=== PATIENT | female | born 1985 | race Caucasian/White ===

== ENCOUNTER 2018-04-25 09:02 | Observation (INO) ==
[2018-04-25] MEDS ORDERED: Albuterol 2.5 MG/3 ML NEBULIZER IH ONE (09:41)
[2018-04-25] MEDS ORDERED: Clindamycin 900 MG/50 ML 900 MG/50 ML IV.SOLN IVPB ONE (09:41)
[2018-04-25] MEDS ORDERED: Albuterol 2.5 MG/3 ML NEBULIZER ONE (09:44)
[2018-04-25] MEDS ORDERED: Ringers Solution, Lactated 1,000 ML IVC SCH (09:45)
[2018-04-25] MEDS ORDERED: Acetaminophen IV 1,000 MG/100 ML INFUS..BTL IVPB ONE (09:56)
[2018-04-25] MEDS ORDERED: *HR* Midazolam HCl 2 MG/2 ML VIAL ONE (09:57)
[2018-04-25] MEDS ORDERED: Scopolamine Patch 1.5 MG PATCH.TD72 TD ONE (09:57)
[2018-04-25] MEDS ORDERED: *HR* Propofol 200 MG/20 ML VIAL IVP ONE (09:57)
[2018-04-25] MEDS ORDERED: *HR* FentaNYL (PF) 100 MCG/2 ML VIAL ONE (09:57)
[2018-04-25] MEDS ORDERED: Ondansetron 4 MG/2 ML VIAL ONE (09:58)
[2018-04-25] MEDS ORDERED: *HR* Rocuronium Bromide 50 MG/5 ML VIAL ONE ×2 (09:58→12:37)
[2018-04-25] MEDS ORDERED: Lidocaine -MPF 4% 5 ML AMPUL ONE (09:58)
[2018-04-25] MEDS ORDERED: Lidocaine -MPF 2% 2 ML VIAL ONE (09:58)
[2018-04-25] MEDS ORDERED: Dexamethasone 4 MG/ML VIAL ONE (09:58)
[2018-04-25] MEDS ORDERED: *HR* Succinylcholine 200 MG/10 ML VIAL IVP ONE (09:58)
--- NOTE | 2018-04-25 09:59 | Anesthesia Evaluation PreOp ---
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: Denies Any Significant HX Other Medical History: Denies Any Significant HX Anesthesia History: No Prior Anesthetic Complications, Past Anesthesia Alcohol Use: none Drug use: none Medications and Allergies Ondansetron ODT [Zofran ODT] 4 mg SL Q8HR PRN #10 tab.rapdis 01/24/16 [Rx] Ondansetron ODT [Zofran ODT] 4 mg SL Q6HR #7 tab.rapdis 01/25/16 [Rx] Docusate [Colace] 100 mg PO BID #30 capsule 01/27/16 [Rx] Ibuprofen [Motrin] 800 mg PO Q8HR #50 tablet 01/27/16 [Rx] OxyCODONE/APAP 5/325 [Percocet 5/325 MG] 1 each PO Q4HR PRN #30 tablet 01/27/16 [Rx] Famotidine [Pepcid] 20 mg PO BID PRN #10 tablet 04/12/16 [Rx] predniSONE [PredniSONE] 40 mg PO DAILY #3 tablet 04/12/16 [Rx] 3 Allergy/AdvReac Type Severity Reaction Status Date / Time aspirin Allergy Hives Verified 04/18/18 10:06 Sulfa (Sulfonamide Allergy Rash Verified 04/18/18 10:06 Antibiotics) - Meds/Allergy Pre-op Review Medications Reviewed: Yes Allergies Reviewed: Yes Beta Blockers on Current Med List: No Anesthesia Exam - HEENT Pupil (Motor): Pupils equal Mallampati: II Teeth: Normal Oral Opening: Greater than 3 - Cardiac Rhythm: Regular Murmur: None - Pulmonary Breath Sounds: bilateral Clear Respiratory Effort: Symmetrical Anesthesia Assess/Plan ASA Score: 2 Modified Samantha Scale for Level of Consciousness: Cooperative, oriented, and tranquil Anesthetic Plan: General Monitoring Plan: Standard Monitors Recovery Plan: PACU (Discussed GA,risks. Agreed to proceed.)
--- NOTE | 2018-04-25 10:12 | History & Physical Report ---
Date of Encounter: 04/25/18 Time of Encounter: 10:12 24 Hour HP Update - Instructions Instructions: If the History and Physical is less than 30 days old and was completed prior to A.M. admission and or procedure and has NOT been updated on calendar day of procedure please complete this update prior to performing procedure. - Update Patient reports changes in Medical Condition: No Changes in examination, assessment, or condition: No Changes in Medication: No Preop tests/diagnostics Reviewed: Yes Surgery Remains Indicated: Yes Consent for Planned Operative Procedure(s) Verified: Yes - Pre-Operative Checklist Preoperative Checklist Indicated: Yes Prophylactic Antibiotic Ordered: Yes Home Medications Include Beta Shemar: No Is VTE Prophylaxis Indicated?: Yes
--- NOTE | 2018-04-25 10:17 | Operative Note ---
Date of procedure: 04/25/18 Pre-op diagnosis: moderate cervical dysplasia (AMI-2), menorrhagia, dysmenorrhea Post-op diagnosis: same Procedure: Laparoscopic-assisted vaginal hysterectomy, bilateral salpingectomy, cystoscopy Anesthesia: MARCIANO Surgeon: Emre Cote Was there an animal assistant present: Yes Painting Contractor: Juani Henson Painting Contractor Other: Cheryle Goldman Estimated blood loss (cc): 100 Specimen: Uterus cervix bilateral tubes Condition: stable Disposition: PACU Procedure in Detail: Indications: 32 year old female A1 with history of abnormal pap and colposcopic biopsy showing moderate cervical dysplasia. Pt. offered LEEP but requested hysterectomy for AMI-2 and history of menorrhagia and dysmenorrhea. Pt. reports history of menses lasting 7-10 days, requiring pads and tampons every hour, occasionally soaking through clothing. Procedure: Patient was taken to the operating room, placed in supine position, and a general anesthetic was administered. She was then placed in modified dorsal lithotomy position and the skin was prepped and draped in usual sterile fashion. A timeout procedure was performed. A weighted speculum was placed in vagina and the anterior lip of cervix was grasped with a single-tooth tenaculum. A uterine manipulator was inserted. The skin incision sites were infiltrated with 0.25% Marcaine with epinephrine. A transverse infraumbilical incision was then performed. A bladeless trocar was inserted under direct visualization. The abdominal cavity was insufflated with carbon dioxide gas. 2 lateral trochars were then inserted under direct visualization. Uterus tubes and ovaries along with ureters were clearly visualized. The right mesosalpinx was transected with the Harmonic scalpel this was then carried through the round ligament. A bladder flap was then created. The procedure was then repeated in similar fashion on the left side. Next the uterine vessels were transected with the Harmonic scalpel. The pedicles were then taken down bilaterally to the level of the lower uterine segment. There was some bleeding on the right side that was eventually controlled with bipolar cautery. The gas was allowed to escape and the laparoscope was removed and the vaginal portion of surgery was then performed. The paracervical tissues were infiltrated with dilute Pitressin solution. A circumferential cervical incision was then performed and the mucosa was bluntly dissected away. A posterior and then an anterior colpotomy was performed. The uterosacral and cardinal ligaments bilaterally were clamped cut and ligated with 0 Vicryl suture. The entire specimen was then removed. Good hemostasis was noted from the pedicle sites. The vaginal cuff was closed with 0 Vicryl suture in a running locking fashion starting at the lateral margins and meeting in the midline. Because of the location of the bleeder near the lower uterine segment I decided to perform a cystoscopy to verify ureteral integrity. A Villela catheter was removed and cystoscope was used with sterile water used as a distention medium. Good visualization was obtained. Urine was noted to flow from both ureteral jets. The cystoscope was then removed and a new Villela catheter was inserted. The laparoscope was then reinserted and good hemostasis was present. The scope was removed and gas was allowed to escape and all trochars were removed. The skin incisions were closed with 4-0 Vicryl suture in interrupted subcuticular fashion. Patient followed procedure well, all sponge needle and instrument counts reported as correct. Estimated blood loss was 100 mL. The urine in the Villela catheter was clear and yellow. She was then taken recovery room in stable condition.
[2018-04-25] MEDS ORDERED: *HR* HYDROmorphone 2 MG/ML SYRINGE ONE (10:50)
[2018-04-25] MEDS ORDERED: Bupivacaine/EPI 1:200k 0.25%PF 10 ML VIAL INFILT ONE (11:00)
[2018-04-25] MEDS ORDERED: *HR* Vasopressin 20 UNIT/ML VIAL ONE (11:01)
[2018-04-25] MEDS ORDERED: Ondansetron 4 MG/2 ML VIAL IVP ONE (12:04)
[2018-04-25] MEDS ORDERED: *HR* Promethazine 25 MG/ML VIAL IVP PRN (12:04)
[2018-04-25] MEDS ORDERED: *HR* Morphine 2 MG/ML SYRINGE IVP PRN (12:04)
[2018-04-25] MEDS ORDERED: *HR* OxyCODONE Immed Rel 5 MG TABLET PO PRN (12:04)
[2018-04-25] MEDS ORDERED: Neostigmine Methylsulfate 3 MG/3 ML SYRINGE ONE (13:46)
--- NOTE | 2018-04-25 14:13 | Anesthesia Evaluation Post Op ---
Date of Encounter: 04/25/18 Time of Encounter: 14:10 - Vital Signs Vital Signs: Vital Signs/O2 Sat/Glucose, Most Current Temp Pulse Resp BP Pulse Ox 04/25/18 14:01 63 12 103/59 99 04/25/18 13:51 56 12 103/59 99 04/25/18 13:41 97.3 F L 60 14 94/49 96 - Lungs Lungs: Clear Ascult./Percussion - Airway Airway: Non-obstructed - Cardiovascular Regular Rate - Mental Status Mental Status: Alert & Oriented, Answers Appropriately - Pain Pain Scale: 0 - Nausea Vomiting Nausea Vomiting: Not Present - Hydration Hydration: Ice chips - Discharge PostOp Status: Transfer Patient to floor (no anesthesia complications VSS transfer to floor)
[2018-04-25] MEDS ORDERED: Naloxone 0.4 MG/ML INJ IVP PRN (14:59)
[2018-04-25] MEDS: *HR* HYDROcodone/Acet 5/325 mg TABLET PO PRN (15:35)
[2018-04-25] MEDS: *HR* Morphine 2 MG/ML SYRINGE IVP PRN ×2 (20:12→21:50)
[2018-04-26] MEDS: *HR* Morphine 2 MG/ML SYRINGE IVP PRN ×3 (00:24→09:46)
[2018-04-26] MEDS: *HR* HYDROcodone/Acet 5/325 mg TABLET PO PRN ×3 (02:37→11:40)
[2018-04-26 04:37] LABS: Basophils % 0.1 %; Eosinophils % 0.3 %; Hematocrit 34.5 % (35.3-44.9); Hemoglobin 11.6 g/dL (11.5-15.4); Immature Granulocytes % 0.3 % (0-4); Lymphocytes # 1.2 K/mcL (0.6-4.6); Lymphocytes % 8.5 %; Mean Corpuscular HGB Conc 33.6 g/dL (31.6-35.5); Mean Corpuscular Hemoglobin 31.1 pg (28.0-33.3); Mean Corpuscular Volume 92.5 fL (83.0-100.0); Monocytes % 6.6 %; Neutrophils # 12.1 K/mcL (1.6-8.9); Platelet Count 241 K/mcL (140-400); Red Blood Count 3.73 M/mcL (3.82-4.97); Red Cell Distribution Width 12.6 % (11.5-14.5); Segmented Neutrophils % 84.2 %
--- NOTE | 2018-04-26 07:20 | Discharge Summary ---
Date of Encounter: 04/27/18 Time of Encounter: 12:28 - Discharge Diagnosis (1) Cervical dysplasia Priority: Primary Status: Resolved (2) Menorrhagia Priority: Secondary Status: Resolved Qualifiers: Menorrahagia type: with regular cycle Qualified Code(s): N92.0 - Excessive and frequent menstruation with regular cycle (3) Dysmenorrhea Priority: Secondary Status: Resolved - Discharge Medications Prescriptions: Ibuprofen [Motrin] 200 mg PO Q4HR PRN #30 tablet PRN Reason: Fever/Pain OxyCODONE Immed Rel [Roxicodone 5 MG] 5 mg PO Q4HR PRN 7 Days #30 tablet PRN Reason: Pain Home Medications: Adult Multivitamin Gummies 2 DAILY 04/25/18 [History] Escitalopram [Lexapro] 20 mg ORAL RINSE DAILY 04/25/18 [History] Docusate [Colace] 100 mg PO BID #60 capsule 04/26/18 [Rx] Ibuprofen [Motrin] 200 mg PO Q4HR PRN #30 tablet 04/27/18 [Rx] OxyCODONE Immed Rel [Roxicodone 5 MG] 5 mg PO Q4HR PRN 7 Days #30 tablet [Rx] Allergies/Adverse Reactions: 3 Allergy/AdvReac Type Severity Reaction Status Date / Time aspirin Allergy Hives Verified 04/18/18 10:06 Sulfa (Sulfonamide Allergy Rash Verified 04/18/18 10:06 Antibiotics) Data Procedures and tests throughout hospitalization: Laboratory Tests 04/26/18 04:11 WBC 14.4 H RBC 3.73 L Hgb 11.6 Hct 34.5 L MCV 92.5 MCH 31.1 MCHC 33.6 RDW 12.6 Plt Count 241 MPV 10.0 Immature Gran % 0.3 Seg Neutrophils % 84.2 Lymphocytes % 8.5 Monocytes % 6.6 Eosinophils % 0.3 Basophils % 0.1 Neutrophils # 12.1 H Lymphocytes # 1.2 Monocytes # 1.0 Eosinophils # 0.0 Basophils # 0.0 Labs on day of discharge: Labs from last 24 hours 04/26/18 04:11 WBC 14.4 H RBC 3.73 L Hgb 11.6 Hct 34.5 L MCV 92.5 MCH 31.1 MCHC 33.6 RDW 12.6 Plt Count 241 MPV 10.0 Immature Gran % 0.3 Seg Neutrophils % 84.2 Lymphocytes % 8.5 Monocytes % 6.6 Eosinophils % 0.3 Basophils % 0.1 Neutrophils # 12.1 H Lymphocytes # 1.2 Monocytes # 1.0 Eosinophils # 0.0 Basophils # 0.0 Primary care physician: Lissy Nobles, CORE COMPOSER MACHINE TENDER Discharging clinician: Emre Cote Anticipated date of discharge: 04/26/18 - Patient Status Disposition: Home, Self-Care Condition: Good Functional capacity at discharge: independent ambulation Overall status at discharge: patient is progressing back to baseline - Discharge Instructions Follow Up With: Emre Cote DO [Partnered Physician] - - Diet and Activity Activity: increase activity as tolerated Diet: advance to your usual diet Hospital Course BIOLOGICAL CHEMIST Procedures: L[facility] Time spent discussing smoking cessation with patient: 3 to 10 minutes Time Attestation: Total time spent providing and/or coordinating discharge services: Time Spent: Less than 30 minutes Exam - Constitutional Vitals: Temp Pulse Resp BP Pulse Ox 98.0 F 72 14 109/52 98 04/26/18 04:30 04/26/18 04:30 04/26/18 04:30 04/26/18 04:30 04/26/18 04:30 General appearance IM: mild distress, A&O X 3 - Respiratory Respiratory exam: Present: CTAB - Cardiovascular Cardiovascular exam IM: Present: RRR - GI/Abdominal GI/Abdominal exam IM: normal bowel sounds Incision: normal, dry, intact - Extremities Exam Extremities exam IM: Present: normal inspection. Absent: calf tenderness - VTE Documentation of Mechanical Device: Intermittent pneumatic compression device
[2018-04-26] MEDS ORDERED: Acetaminophen IV 1,000 MG/100 ML INFUS..BTL IVPB ONE (14:20)
--- NOTE | 2018-04-26 14:52 | OB/GYN Progress Note ---
Date of Encounter: 04/26/18 Time of Encounter: 14:49 - Assessment and Plan (1) Cervical dysplasia Current Visit: Yes Status: Resolved (2) Menorrhagia Current Visit: Yes Status: Resolved Because of continued pain, will obtain UA, C&S. Begin Ofrimev, change from Vicodin to Oxycodone. Will give Dulcolax tabs. Postpone discharge until tomorrow. Qualifiers: Menorrahagia type: with regular cycle Qualified Code(s): N92.0 - Excessive and frequent menstruation with regular cycle (3) Dysmenorrhea Current Visit: Yes Status: Resolved Subjective - Subjective Principal diagnosis: Cervical dysplasia Patient reports: other (Pt. seen twice today. Has c/o abdominal pain, now mainly RLQ, RUQ, and right flank. Voiding well, Tolerating diet.) Objective - Vital Signs Latest vital signs: Vital Signs Temp Pulse Resp BP Pulse Ox 04/26/18 11:54 98.2 F 60 16 95/53 98 04/26/18 08:23 97.9 F 66 16 92/53 98 04/26/18 04:30 98.0 F 72 14 109/52 98 04/26/18 00:15 98.0 F 72 14 110/56 98 04/25/18 19:35 97.5 F L 68 14 116/70 99 04/25/18 17:30 97.5 F L 63 14 103/56 04/25/18 16:25 97.2 F L 70 14 104/58 97 04/25/18 15:33 97.5 F L 61 12 102/97 04/25/18 15:01 98.1 F 60 14 103/55 Intake and Output 04/25/18 04/26/18 04/26/18 23:59 07:59 15:59 Intake Total 500 / 500 200 / 200 Output Total 1999 600 / 600 Balance -1500 / -1500 -400 / -400 Intake: Oral 500 / 500 200 / 200 Output: Urine 1999 600 / 600 Other: Meal Lunch Percent of Meal Consumed 75% Stool Characteristics Normal for Patient Weight 98.611 kg Patient Weight 04/26/18 23:59 Weight 98.611 kg - I&O's I&O's: Intake & Output 04/23/18 04/24/18 04/25/18 04/26/18 23:59 23:59 23:59 23:59 Intake Total 700 / 700 Output Total 100 / 100 2600 / 2600 Balance -100 / -100 -1900 / -1900 Weight 97.1 kg 98.611 kg - Exam Lungs: bilateral: normal Extremities: Present: normal. Absent: tenderness, edema Abdomen: Present: normal appearance, soft, other (Good bowel sounds, no guarding /rebound tenderness) Incision OB: Present: normal, dry, intact - Labs Labs: Abnormal lab results WBC 14.4 K/mcL (4.3-11.1) H 04/26/18 04:11 RBC 3.73 M/mcL (3.82-4.97) L 04/26/18 04:11 Hct 34.5 % (35.3-44.9) L 04/26/18 04:11 Neutrophils # 12.1 K/mcL (1.6-8.9) H 04/26/18 04:11 Consult Discharge Plan - Plan Referrals: Emre Cote DO [Partnered Physician] - Prescriptions: HYDROcodone/Acet 5/325 mg [Marcus 5-325 mg] 1 tab PO Q4HR PRN 7 Days #30 tablet PRN Reason: Moderate Pain (4-6) Docusate [Colace] 100 mg PO BID #60 capsule
[2018-04-26] MEDS: *HR* OxyCODONE Immed Rel 5 MG TABLET PO PRN ×2 (15:12→20:12)
[2018-04-26 18:36] LABS: Bilirubin,Urine Negative (Negative); Blood,Urine Large (Negative); Clarity,Urine Clear (Clear); Color,Urine Yellow (Yellow); Glucose,Urine (UA) Normal (Normal); Ketones,Urine Negative (Negative); Leukocyte Esterase,Urine Trace (Negative); Nitrite,Urine Negative (Negative); Protein,Urine Negative (Neg-Trace); Specific Gravity,Urine 1.019 (1.010-1.025); Urobilinogen,Urine Normal (Normal)
[2018-04-26 18:38] LABS: Bacteria,Urine None Seen per hpf (None-Few); Hyaline Casts,Urine None Seen per lpf (None-Few); RBC,Urine 50-100 per hpf (0-3); Squamous Epithelial Cell,Urine Many per lpf (None-Few)
[2018-04-27] MEDS: *HR* OxyCODONE Immed Rel 5 MG TABLET PO PRN ×4 (00:36→13:02)
--- NOTE | 2018-04-27 07:21 | OB/GYN Progress Note ---
Date of Encounter: 04/27/18 Time of Encounter: 07:19 - Assessment and Plan (1) Cervical dysplasia Current Visit: Yes Status: Resolved (2) Menorrhagia Current Visit: Yes Status: Resolved Because of continued pain, will obtain UA, C&S. Begin Ofrimev, change from Vicodin to Oxycodone. Will give Dulcolax tabs. Postpone discharge until tomorrow. Qualifiers: Menorrahagia type: with regular cycle Qualified Code(s): N92.0 - Excessive and frequent menstruation with regular cycle (3) Dysmenorrhea Current Visit: Yes Status: Resolved (4) Post-op pain Current Visit: Yes Status: Acute Will obtain CT of pelvis Subjective - Subjective Interval history: Pt. still c/o pain lower pelvis, to right flank. Reports tolerating diet, voiding well. Some nausea after extended standing/ambulation. Objective - Vital Signs Latest vital signs: Vital Signs Temp Pulse Resp BP Pulse Ox 04/27/18 04:25 98.1 F 69 14 108/54 97 04/27/18 00:25 98.3 F 69 14 109/67 97 04/26/18 19:45 98.3 F 70 14 99/62 98 04/26/18 16:02 98 F 57 14 103/53 04/26/18 11:54 98.2 F 60 16 95/53 98 04/26/18 08:23 97.9 F 66 16 92/53 98 Intake and Output 04/26/18 04/26/18 04/27/18 15:59 23:59 07:59 Intake Total 200 / 200 200 / 200 Output Total 600 / 600 200 / 200 Balance -400 / -400 0 / 0 Intake: Oral 200 / 200 200 / 200 Output: Urine 600 / 600 200 / 200 Other: Meal Lunch Percent of Meal Consumed 75% Weight 99.972 kg Patient Weight 04/27/18 23:59 Weight 99.972 kg - I&O's I&O's: Intake & Output 04/24/18 04/25/18 04/26/18 04/27/18 23:59 23:59 23:59 23:59 Intake Total 700 / 700 200 / 200 Output Total 100 / 100 2600 / 2600 200 / 200 Balance -100 / -100 -1900 / -1900 0 / 0 Weight 97.1 kg 98.611 kg 99.972 kg - Exam Lungs: bilateral: normal Extremities: Absent: tenderness Abdomen: Present: soft, tenderness. Absent: rigidity, distention, mass Incision OB: Present: normal, dry, intact - Labs Labs: Abnormal lab results WBC 14.4 K/mcL (4.3-11.1) H 04/26/18 04:11 RBC 3.73 M/mcL (3.82-4.97) L 04/26/18 04:11 Hct 34.5 % (35.3-44.9) L 04/26/18 04:11 Neutrophils # 12.1 K/mcL (1.6-8.9) H 04/26/18 04:11 Urine Blood Large (Negative) H 04/26/18 18:13 Ur Leukocyte Esterase Trace (Negative) H 04/26/18 18:13 Urine Microscopic RBC 50-100 per hpf (0-3) H 04/26/18 18:13 Urine Microscopic WBC 3-5 per hpf (0-3) H 04/26/18 18:13 Ur Squamous Epith Cells Many per lpf (None-Few) H 04/26/18 18:13 Ur Culture Indicated? NO. (NO) A 04/26/18 18:13 Consult Discharge Plan - Plan Referrals: Emre Cote DO [Partnered Physician] -
[2018-04-27] MEDS ORDERED: Isovue-370 500 ML INFUS..BTL IV ONE (07:24)
[2018-04-27] MEDS ORDERED: Ibuprofen 200 MG TABLET PO PRN (12:30)
[2018-04-27 12:33] VITALS: BP 108/63
== END 2018-04-27 17:20 | disposition home or self-care (01) ==
LOC: SAMDAY 09:02 → 1NENUOBS 14:34 → INTOOBSV 04-26 18:02
PROC: GYNLAVH (ICD-10-PCS; 2018-04-25 10:30)